=== PATIENT | female | born 1945 | race Two or more races ===

== ENCOUNTER 2021-06-08 11:15 | Inpatient (IN) | payer OTHER ==
[~2021-06-08] VITALS: Ht 160 cm; Wt 81.6 kg
[2021-06-08] MEDS ORDERED: LOPRESS PO (12:21)
[2021-06-08] MEDS ORDERED: LIPITO PO (12:21)
[2021-06-08] MEDS ORDERED: NORV PO (12:21)
[2021-06-15] MEDS ORDERED: HYDROCHLOROTH12.5 MG (10:49)
[2021-06-15] MEDS ORDERED: ATORVASTATIN CA20 MG (10:49)
[2021-06-15] MEDS ORDERED: AMLODIPINE BESY10 MG (10:49)
[2021-06-15] MEDS ORDERED: METOPROLOL TAR100 MG (10:49)
== END 2021-06-18 18:15 | disposition home or self-care (01) | DRG 331 ==
LOC: O/R 06-15 05:56 → SURH 06-15 05:56
PROVIDERS: ADMIT Colon & Rectal Surgery; ATTEND Colon & Rectal Surgery
PROC: 07BC0ZX Excision of Pelvis Lymphatic, Open Approach, Diagnostic (ICD-10-PCS; 2021-06-15)
PROC: 0DBU0ZZ Excision of Omentum, Open Approach (ICD-10-PCS; 2021-06-15)
PROC: 3E0F7SF Introduction of Other Gas into Respiratory Tract, Via Natural or Artificial Opening (ICD-10-PCS; 2021-06-15)
PROC: 0DTF0ZZ Resection of Right Large Intestine, Open Approach (ICD-10-PCS; principal; 2021-06-15 07:00)
DX: D12.6 Benign neoplasm of colon, unspecified (principal); D17.79 Benign lipomatous neoplasm of other sites; K63.89 Other specified diseases of intestine; I10 Essential (primary) hypertension; Z20.822 Contact with and (suspected) exposure to COVID-19